=== PATIENT | female | born 1970 | race Two or more races ===

== ENCOUNTER 2025-08-10 11:30 | Inpatient (IN) | payer OTHER ==
[~2025-08-10] VITALS: Ht 182.9 cm; Wt 86.6 kg
[2025-08-10] MEDS ORDERED: EZALLOR SPRINKL10 MG PO (13:01)
[2025-08-10] MEDS ORDERED: SYNTHROID137 MCG PO (13:01)
[2025-08-10 13:02] VITALS: BP 131/76
[2025-08-10] MEDS ORDERED: MELOXICAM15 MG PO (13:02)
[2025-08-10 13:05] VITALS: BP 143/90
[2025-08-18] MEDS ORDERED: CEFAZOLIN SODIUM 1,000 MG VIAL ONE (09:38)
[2025-08-18] MEDS ORDERED: TRANEXAMIC ACID 100MG/1ML (1000MG) AMPUL ONE (09:38)
[2025-08-18] MEDS ORDERED: KETOROLAC TROMETHAMINE 60 MG VIAL IM ONE (12:47)
[2025-08-18] MEDS ORDERED: BUPIVACAINE HCL/MPF 0.5% 30ML VIAL ONE (12:47)
[2025-08-18] MEDS ORDERED: POVIDONE-IODINE 118 ML BOTT TOP ONE (12:47)
[2025-08-18] MEDS ORDERED: LIDOCAINE HCL 1%/EPINEPHRINE 20ML VIAL IJ ONE (12:47)
[2025-08-18] MEDS ORDERED: ONDANSETRON HCL 2 MG/ML VIAL IV PRN (15:00)
[2025-08-18] MEDS ORDERED: MORPHINE SULFATE 4 MG/ML CARTRIDGE IV SCH (18:00)
[2025-08-18] MEDS ORDERED: OxyCODONE HCL 5 MG TABLET (ROXICODONE) PO SCH (18:00)
[2025-08-18] MEDS ORDERED: CEFAZOLIN SODIUM 1,000 MG VIAL IV SCH (18:00)
[2025-08-18 20:57] VITALS: BP 131/76
[2025-08-18] MEDS ORDERED: GABAPENTIN 100 MG CAPSULE PO SCH (21:00)
[2025-08-18] MEDS ORDERED: ORPHENADRINE CITRATE 100 MG TABLET PO SCH (21:00)
[2025-08-19] VITALS: BP 108/62
[2025-08-19 01:27] LABS: BASO % 0.2 % (0.1-1.2); EOS # 0.04 (0.04-0.54); EOS % 0.4 % (0.7-7.0); LYMPH # 1.17 (1.18-3.74); LYMPH % 12.4 % (19.3-53.1); MEAN PLATELET VOLUME 10.50 fl (9.4-12.4); MONO # 0.59 (0.24-0.82); MONO % 6.2 % (4.7-12.5); NEUT # 7.60 (1.56-6.13); NEUT % 80.5 % (34.0-71.1); RED CELL DISTRIBUTION WIDTH 13.2 % (11.6-14.4)
[2025-08-19] MEDS ORDERED: OxyCODONE HCL 5 MG TABLET (ROXICODONE) PO SCH (08:27)
[2025-08-19 08:50] VITALS: BP 145/78
[2025-08-19] MEDS ORDERED: RIVAROXABAN 10 MG TAB PO SCH (09:00)
[2025-08-19] MEDS ORDERED: MORPHINE SULFATE 4 MG/ML CARTRIDGE IV SCH (09:00)
[2025-08-19 12:46] LABS: COVID-19 AG NEGATIVE (NEGATIVE)
[2025-08-19 14:03] LABS: ALT/SGPT 24.0 U/L (12-78); AST/SGOT 19.0 U/L (15-37); BILIRUBIN TOTAL 0.59 mg/dL (0.3-1.2); BUN CREA RATIO 18.0 (7.0-25.0); CREATININE SERUM 0.68 mg/dL (0.55-1.02); GFR 89.5; GLOBULINA 3.3 G/DL (2.4-3.5); GLUCOSE FASTING 114.0 mg/dL (65-100); OSMOLALITY SERUM 274.0 MOSM/KG (275-295)
[2025-08-19] MEDS ORDERED: Cyanocobalamin/Mecobalamin 1 TAB.SL SL NR (14:45)
[2025-08-19] MEDS ORDERED: ROSUVASTATIN CALCIUM 10 MG TABLET PO SCH (17:00)
[2025-08-19] MEDS ORDERED: SOD FERRIC GLUC COMPLX/SUCROSE 62.5 MG/5 ML AMPUL IV SCH (17:00)
[2025-08-19 17:38] VITALS: BP 139/75
[2025-08-20 00:43] VITALS: BP 140/70
[2025-08-20 02:34] LABS: BASO % 0.2 % (0.1-1.2); EOS # 0.11 (0.04-0.54); EOS % 1.2 % (0.7-7.0); LYMPH # 1.31 (1.18-3.74); LYMPH % 14.6 % (19.3-53.1); MEAN PLATELET VOLUME 10.80 fl (9.4-12.4); MONO # 0.79 (0.24-0.82); MONO % 8.8 % (4.7-12.5); NEUT # 6.69 (1.56-6.13); NEUT % 74.9 % (34.0-71.1); RED CELL DISTRIBUTION WIDTH 13.1 % (11.6-14.4)
[2025-08-20] MEDS ORDERED: LEVOTHYROXINE SODIUM 137 MCG TABLET PO SCH (06:00)
[2025-08-20] MEDS ORDERED: Cyanocobalamin/Mecobalamin 1 TAB.SL SL SCH (09:00)
[2025-08-20] MEDS ORDERED: NORFLEX100MG PO (11:57)
[2025-08-20] MEDS ORDERED: XARELTO10 MG PO (11:57)
[2025-08-20] MEDS ORDERED: GABAPENTIN100 MG PO (11:58)
[2025-08-20] MEDS ORDERED: PERCOCET 5-3251 EACH PO (11:59)
== END 2025-08-20 15:03 | DRG 470 ==
LOC: SURG 08-18 11:30 → O/R 08-18 13:00 → OB/GYN 08-18 16:07
PROVIDERS: Orthopaedic Surgery; ADMIT Orthopaedic Surgery; ATTEND Orthopaedic Surgery
PROC: 0QUF0KZ Supplement Left Patella with Nonautologous Tissue Substitute, Open Approach (ICD-10-PCS; 2025-08-18)
PROC: 0SRD0JZ Replacement of Left Knee Joint with Synthetic Substitute, Open Approach (ICD-10-PCS; principal; 2025-08-18 12:30)
DX: M17.12 Unilateral primary osteoarthritis, left knee (principal); D62 Acute posthemorrhagic anemia; M85.662 Other cyst of bone, left lower leg; E78.5 Hyperlipidemia, unspecified